=== PATIENT | female | born 1965 | race Caucasian/White ===

== ENCOUNTER → 2018-11-30 | Outpatient (CLI) | payer MEDICAID ==
[~2018-11-30] MED LIST: ATEN25TA PO; FENO145T32 PO; METF500T27 PO
[2018-11-30 14:46] LABS: BASOPHILS % (AUTO) 0 % (0-1); EOSINOPHILS # (AUTO) 0.14 x10^3/uL (0-0.4); EOSINOPHILS % (AUTO) 2 % (1-7); LYMPHOCYTES # (AUTO) 1.27 x10^3/uL (1-3.4); LYMPHOCYTES % (AUTO) 18 % (22-44); MD NO; MEAN CORPUSCULAR HEMOGLOBIN 31.4 pg (27.0-34.8); MEAN CORPUSCULAR HGB CONC 33.9 g/dL (32.4-35.8); MEAN CORPUSCULAR VOLUME 92.6 fL (80-100); MEAN PLATELET VOLUME 9.6 fL (7.4-10.4); MONOCYTES # (AUTO) 0.42 x10^3/uL (0.2-0.8); MONOCYTES % (AUTO) 6 % (2-9); NEUTROPHILS # (AUTO) 5.25 x10^3/uL (1.8-6.8); NEUTROPHILS % (AUTO) 74 % (42-75); PLATELET COUNT 192 x10^3/uL (130-400); RED BLOOD COUNT 4.52 x10^6/uL (3.82-5.3); RED CELL DISTRIBUTION WIDTH 13.1 % (9.6-15.2)
[2018-11-30 14:54] LABS: INTERNATIONAL NORMALIZED RATIO 1.01 (0.93-1.1); PROTHROMBIN TIME 10.6 Seconds (9.6-11.5)
[2018-11-30 14:56] LABS: ALANINE AMINOTRANSFERASE 42 U/L (12-78); ALBUMIN 3.8 g/dL (3.4-5.0); ANION GAP 10 mmol/L (5-15); CALCIUM 9.4 mg/dL (8.5-10.1); CHLORIDE 111 mmol/L (98-107); CREATININE 0.97 mg/dL (0.55-1.02)
[2018-11-30 14:58] LABS: ALKALINE PHOSPHATASE 62 U/L (45-117); BILIRUBIN,TOTAL 0.5 mg/dL (0.2-1.0); TOTAL PROTEIN 7.5 g/dL (6.4-8.2)
== END | disposition home or self-care (01) ==
LOC: STAR 13:11
PROVIDERS: ATTEND Specialist
DX: Z01.818 Encounter for other preprocedural examination (principal); N85.3 Subinvolution of uterus; R19.07 Generalized intra-abdominal and pelvic swelling, mass and lump
CPT/HCPCS: 36415; 71046; 80053; 85025; 85610; 85730; 93005

== ENCOUNTER 2018-12-06 08:27 | Day surgery (SDC) | payer MEDICAID ==
[~2018-12-06] VITALS: Ht 162.6 cm; Wt 92.5 kg
[2018-12-06] MEDS ORDERED: LACTATED RINGERS 1,000 ML IV SCH (09:23)
[2018-12-06 09:55] VITALS: BP 108/67
[2018-12-06] MEDS ORDERED: KETOROLAC 30 MG/1 ML ONE (10:49)
[2018-12-06] MEDS ORDERED: GABAPENTIN 300 MG CAPSULE PO ONE (13:00)
[2018-12-06] MEDS ORDERED: SCOPOLAMINE PATCH, 1.5MG PATCH.TD72 TD ONE (13:00)
[2018-12-06] MEDS ORDERED: ACETAMINOPHEN 500 MG TABLET PO ONE (13:00)
[2018-12-06] MEDS ORDERED: BUPIVACAINE/PF 0.25% ONE (14:53)
[2018-12-06] MEDS ORDERED: FENTANYL PF 250 MCG/5ML ONE (15:39)
[2018-12-06] MEDS ORDERED: MIDAZOLAM 1 MG/ML, 2ML ONE (15:39)
[2018-12-06] MEDS ORDERED: FENTANYL PF 100 MCG/2ML IV PRN (17:30)
[2018-12-06] MEDS ORDERED: MIDAZOLAM 1 MG/ML, 2ML IV PRN (17:30)
[2018-12-06] MEDS ORDERED: METOPROLOL 1 MG/ML, 5ML IV PRN (17:30)
[2018-12-06] MEDS ORDERED: ACETAMINOPHEN 325 MG TABLET PO PRN (17:30)
[2018-12-06] MEDS ORDERED: ALBUTEROL/IPRATROPIUM 2.5MG/0.5MG, 3 ML NPPB PRN (17:30)
[2018-12-06] MEDS ORDERED: hydrALAzine 20 MG/ML, 1ML IV PRN (17:30)
[2018-12-06] MEDS ORDERED: OXYcodone 5 MG/5 ML ORAL.SOL UDC PO PRN (17:30)
[2018-12-06] MEDS ORDERED: ONDANSETRON 2MG/ML, 2ML IV PRN (17:30)
[2018-12-06] MEDS ORDERED: MEPERIDINE/PF 25MG/0.5ML IVPush PRN (17:30)
[2018-12-06] MEDS ORDERED: PROPOFOL 10 MG/ML, 20ML ONE (17:43)
[2018-12-06] MEDS ORDERED: CEFAZOLIN 1,000 MG ONE (17:43)
[2018-12-06] MEDS ORDERED: ROCURONIUM 10MG/ML,5ML ONE (17:43)
[2018-12-06] MEDS ORDERED: NEOSTIGMINE 1 MG/ML, 10ML ONE (17:43)
[2018-12-06] MEDS ORDERED: DEXAMETHASONE 4 MG/ML, 1ML ONE (17:43)
[2018-12-06] MEDS ORDERED: ONDANSETRON 2MG/ML, 2ML ONE (17:43)
[2018-12-06] MEDS ORDERED: GLYCOPYRROLATE 0.2MG/1ML, 5ML ONE (17:43)
[2018-12-06] MEDS ORDERED: HYDROmorphone 2 MG/ML, 1ML ONE (18:10)
[2018-12-06] MEDS ORDERED: PROMETHAZINE 25 MG/ML, 1ML ONE (18:10)
[2018-12-06] MEDS: PROMETHAZINE 25 MG/ML, 1ML IV PRN ×3 (18:14→18:55)
[2018-12-06] MEDS: HYDROmorphone 2 MG/ML, 1ML IVPush PRN ×2 (18:28→19:14)
[2018-12-06] MEDS ORDERED: ONDANSETRON 4 MG TABLET PO PRN (22:00)
[2018-12-06] MEDS ORDERED: OXYcodone/APAP 7.5/325MG TABLET PO PRN (22:00)
== END 2018-12-06 23:15 | disposition home or self-care (01) ==
LOC: OUT 08:27 → 4NOR 19:00 → OUT 23:15
PROVIDERS: ATTEND Specialist
DX: N80.0 Endometriosis of uterus (principal); N83.292 Other ovarian cyst, left side; N83.291 Other ovarian cyst, right side; N83.8 Other noninflammatory disorders of ovary, fallopian tube and broad ligament; N73.6 Female pelvic peritoneal adhesions (postinfective); I10 Essential (primary) hypertension; E11.9 Type 2 diabetes mellitus without complications; E78.5 Hyperlipidemia, unspecified; M19.90 Unspecified osteoarthritis, unspecified site; E66.01 Morbid (severe) obesity due to excess calories; Z68.36 Body mass index [BMI] 36.0-36.9, adult; Z88.2 Allergy status to sulfonamides; Z86.718 Personal history of other venous thrombosis and embolism; Z87.442 Personal history of urinary calculi; Z80.1 Family history of malignant neoplasm of trachea, bronchus and lung; Z82.49 Family history of ischemic heart disease and other diseases of the circulatory system; Z83.3 Family history of diabetes mellitus
CPT/HCPCS: 36415; 58552; 82962; 86850; 86900; 86923; 88307; J0690; J1100; J1170; J1885; J2250; J2405; J2550; J2704; J2710; J3010; J3490; J7120; Q0162; S2900; G0378